=== PATIENT | female | born 1995 | race Two or more races ===

== ENCOUNTER 2020-11-29 21:50 | Emergency (ER) | payer OTHER ==
[~2020-11-29] VITALS: Ht 172.7 cm; Wt 126.4 kg
--- NOTE | 2020-11-29 22:12 | NUR ---
PT TO ROOM FROM TRIAGE WITH BI LAT EAR PAIN X 4 DAYS
[2020-11-29] MEDS ORDERED: LIDOCAINE-MPF 1%, 5ML ONE (22:32)
[2020-11-29] MEDS ORDERED: HYDROcodone/APAP 5/325 TABLET ONE (23:24)
[2020-11-29] MEDS ORDERED: HYDROcodone/APAP 5/325 TABLET PO ONE (23:30)
[2020-11-30 00:02] VITALS: BP 159/78
== END 2020-11-30 00:04 | disposition home or self-care (01) ==
LOC: ED 23:02
DX: H60.13 Cellulitis of external ear, bilateral (principal)
CPT/HCPCS: 82962; 99283